=== PATIENT | male | born 1955 | race Caucasian/White ===

== ENCOUNTER 2020-06-06 13:18 | Emergency (ER) | payer BC ==
[2020-06-06 14:02] LABS: VBG BASE EXCESS -4.8 mmol/L (-2 - +2); VBG PCO2 30.7 mmHg (41-51); VBG PH 7.402 (7.31-7.41); VBG PO2 59.2 mmHg (25-47); VBG TOTAL CO2 19.6 mmol/L (24-29)
[2020-06-06] MEDS ORDERED: SODIUM CHLORIDE 0.9% 1,000 ML IV STA ×2 (14:02)
[2020-06-06 14:06] LABS: BILIRUBIN,URINE NEGATIVE (NEGATIVE); GLUCOSE, URINE (UA) >=1000 mg/dL (NEGATIVE); KETONES,URINE (UA) 15 mg/dL (NEGATIVE); LEUKOCYTE ESTERASE, URINE NEGATIVE (NEGATIVE); NITRITE,URINE NEGATIVE (NEGATIVE); OCCULT BLOOD,URINE NEGATIVE (NEGATIVE); PROTEIN,URINE NEGATIVE (NEGATIVE); UROBILINOGEN,URINE 2 E.U./dL (NORMAL)
[2020-06-06 14:07] LABS: CLARITY,URINE CLEAR (CLEAR)
--- NOTE | 2020-06-06 14:07 | ED Physician Documentation ---
History of Present Illness - Stated complaint Stated Complaint: RT RIB PX - Chief complaint Chief Complaint: General - History obtained from History obtained from: Patient - History of Present Illness Timing: How many days ago (9) Pain level max: 7 Pain level now: 5 - Additonal information Additional information: Patient is a 65-year-old male who presents to the emergency department left- sided chest wall pain after falling a week ago and landing on the bathtub. Worse with movement and better with rest. He states he is diabetic and his blood sugars been higher than normal as well. States it was over 400 today. He feels weak and shaky. No fevers. No cough. No vomiting. No abdominal pain. Has been taking ibuprofen without relief of the chest wall pain. Patient states he has been drinking heavily since his brother . States no alcohol for 2 days. Has never had seizures. No history of hallucinations. Review of Systems Constitutional: denies: Fever, Chills Respiratory: denies: Cough GI: denies: Nausea, Vomiting Skin: denies: Rash Musculoskeletal: denies: Neck pain, Back pain Neurologic: denies: Headache PD PAST MEDICAL HISTORY - Past Medical History Past Medical History: Yes Cardiovascular: Hypertension Endocrine/Autoimmune: Type 2 diabetes - Present Medications Home Medications: Ambulatory Orders Medication Instructions Recorded Confirmed Lidocaine Patch 5% [Lidoderm Patch] 1 patch TOP DAILY PRN #10 patch 06/06/20 Ondansetron Odt [Zofran] 4 mg TL Q6H PRN #10 tablet 06/06/20 Oxycodone HCl/Acetaminophen 1 - 2 each PO Q6H PRN #14 tablet 06/06/20 [Percocet 5-325 mg Tablet] - Allergies Allergies/Adverse Reactions: Allergies Allergy/AdvReac Type Severity Reaction Status Date / Time No Known Drug Allergies Allergy Verified 06/06/20 13:21 - Living Situation Living Situation: reports: With family Living Arrangement: reports: At home - Social History Does the pt have substance abuse?: No - Family History Family history: reports: Non contributory PD ED PE NORMAL - Vitals Vital signs reviewed: Yes - General General: Alert and oriented X 3, No acute distress, Well developed/nourished - HEENT HEENT: PERRL, Moist mucous membranes - Neck Neck: Supple, no meningeal sign - Cardiac Cardiac: RRR, Strong equal pulses - Respiratory Respiratory: No respiratory distress, Clear bilaterally, Other (TTP L anterior chest wall. no crepitus or ecchymosis.) - Abdomen Abdomen: Soft, Non tender, Non distended - Derm Derm: Warm and dry - Extremities Extremities: No edema, No calf tenderness / cord - Neuro Neuro: Alert and oriented X 3 - Psych Psych: Normal mood, Normal affect Results - Vitals Vitals: Vital Signs - 24 hr 06/06/20 06/06/20 06/06/20 13:22 14:00 14:01 Temperature 36.8 C Heart Rate 96 97 92 Respiratory 18 19 20 Rate Blood Pressure 166/63 H 143/73 H 145/70 H O2 Saturation 96 98 97 06/06/20 06/06/20 06/06/20 14:28 14:51 15:52 Temperature 37.2 C Heart Rate 85 85 82 Respiratory 23 18 19 Rate Blood Pressure 145/70 H 140/64 H 141/67 H O2 Saturation 98 100 06/06/20 06/06/20 06/06/20 15:55 17:23 18:00 Temperature Heart Rate 84 74 80 Respiratory 21 21 18 Rate Blood Pressure 169/78 H 144/58 H 145/80 H O2 Saturation 98 97 100 Oxygen O2 Source Room air - Labs Labs: Laboratory Tests 06/06/20 06/06/20 06/06/20 13:34 13:45 13:45 WBC 9.9 RBC 4.29 L Hgb 14.4 Hct 40.6 L MCV 94.6 H MCH 33.6 H MCHC 35.5 RDW 11.7 L Plt Count 139 MPV 10.5 Neut # (Auto) 8.5 H Lymph # (Auto) 0.7 L Ripley # (Auto) 0.6 Eos # (Auto) 0.0 Baso # (Auto) 0.0 Absolute Nucleated RBC 0.00 Nucleated RBC % 0.0 VBG pH VBG pCO2 VBG pO2 VBG HCO3 VBG Total CO2 VBG O2 Saturation VBG Base Excess Sodium 132 L Potassium 3.7 Chloride 94 L Carbon Dioxide 16 L Anion Gap 22.0 H BUN 19 Creatinine 1.1 Estimated GFR (MDRD) 68 L Glucose 332 H POC Whole Bld Glucose 346 H Estimat Average Glucose Hemoglobin A1c % Calcium 9.5 Total Bilirubin 1.6 H AST 109 H ALT 86 H Alkaline Phosphatase 54 Troponin I High Sens Total Protein 7.8 Albumin 4.5 Globulin 3.3 Albumin/Globulin Ratio 1.4 Lipase 64 H Urine Color Urine Clarity Urine pH Ur Specific [place] Urine Protein Urine Glucose (UA) Urine Ketones Urine Occult Blood Urine Nitrite Urine Bilirubin Urine Urobilinogen Ur Leukocyte Esterase Ur Microscopic Review Urine Culture Comments Serum Ketones SMALL H 06/06/20 06/06/20 06/06/20 13:45 13:45 13:45 WBC RBC Hgb Hct MCV MCH MCHC RDW Plt Count MPV Neut # (Auto) Lymph # (Auto) Ripley # (Auto) Eos # (Auto) Baso # (Auto) Absolute Nucleated RBC Nucleated RBC % VBG pH 7.402 VBG pCO2 30.7 L VBG pO2 59.2 H VBG HCO3 18.7 L VBG Total CO2 19.6 L VBG O2 Saturation 90.3 H VBG Base Excess -4.8 L Sodium Potassium Chloride Carbon Dioxide Anion Gap BUN Creatinine Estimated GFR (MDRD) Glucose POC Whole Bld Glucose Estimat Average Glucose 206 H Hemoglobin A1c % 8.8 H Calcium Total Bilirubin AST ALT Alkaline Phosphatase Troponin I High Sens 38.9 H* Total Protein Albumin Globulin Albumin/Globulin Ratio Lipase Urine Color Urine Clarity Urine pH Ur Specific [place] Urine Protein Urine Glucose (UA) Urine Ketones Urine Occult Blood Urine Nitrite Urine Bilirubin Urine Urobilinogen Ur Leukocyte Esterase Ur Microscopic Review Urine Culture Comments Serum Ketones 06/06/20 06/06/20 06/06/20 13:59 17:10 17:39 WBC RBC Hgb Hct MCV MCH MCHC RDW Plt Count MPV Neut # (Auto) Lymph # (Auto) [place] # (Auto) Eos # (Auto) Baso # (Auto) Absolute Nucleated RBC Nucleated RBC % VBG pH VBG pCO2 VBG pO2 VBG HCO3 VBG Total CO2 VBG O2 Saturation VBG Base Excess Sodium Potassium Chloride Carbon Dioxide Anion Gap BUN Creatinine Estimated GFR (MDRD) Glucose POC Whole Bld Glucose 214 H Estimat Average Glucose Hemoglobin A1c % Calcium Total Bilirubin AST ALT Alkaline Phosphatase Troponin I High Sens 44.5 H* Total Protein Albumin Globulin Albumin/Globulin Ratio Lipase Urine Color YELLOW Urine Clarity CLEAR Urine pH 6.0 Ur Specific [place] 1.015 Urine Protein NEGATIVE Urine Glucose (UA) >=1000 H Urine Ketones 15 H Urine Occult Blood NEGATIVE Urine Nitrite NEGATIVE Urine Bilirubin NEGATIVE Urine Urobilinogen 2 H Ur Leukocyte Esterase NEGATIVE Ur Microscopic Review NOT INDICATED Urine Culture Comments NOT INDICATED Serum Ketones - Rads (name of study) Rib x-ray Radiology: Prelim report reviewed, EMP read contemporaneously, See rad report Chest x-ray Radiology: Prelim report reviewed, EMP read contemporaneously, See rad report PD MEDICAL DECISION MAKING - ED course Complexity details: reviewed results, re-evaluated patient, considered differential, d/w patient ED course: 65-year-old male presents to the emergency department with left ninth and 10th rib fractures. These are about 1 week old. Feels better after IV fluids. Blood sugar decreased with insulin. Feels better after Ativan as well. Pain well controlled. We will prescribe pain medication for home for the rib fractures as well as Lidoderm patches. Patient counseled not to drink while taking narcotic pain medication. Patient ambulating well in the emergency dep artment. Patient counseled regarding signs and symptoms for which I believe and urgent re-evaluation would be necessary. Patient with good understanding of and agreement to plan and is comfortable going home at this time This document was made in part using voice recognition software. While efforts are made to proofread this document, sound alike and grammatical errors may occur. Patient does not want to go to alcohol rehab IMPRESSION: Left lateral ninth and 10th rib fractures are noted, better appreciated on rib series of 06/06/2020. Trace effusion. IMPRESSION: Mildly displaced left ninth and 10th lateral rib fractures with trace effusion. Departure - Departure Disposition: 01 Home, Self Care Clinical Impression: Hyperglycemia Alcohol withdrawal Qualifiers: Complication of substance-induced condition: uncomplicated Qualified Code(s): F10.230 - Alcohol dependence with withdrawal, uncomplicated Rib fracture Qualifiers: Encounter type: initial encounter Rib fracture type: multiple ribs Fracture type: closed Laterality: left Qualified Code(s): S22.42XA - Multiple fractures of ribs, left side, initial encounter for closed fracture Condition: Good Instructions: ED Withdrawal Alcohol, ED Fx Rib Follow-Up: your,doctor in 1 week [Other] Prescriptions: Lidocaine Patch 5% [Lidoderm Patch] 1 patch TOP DAILY PRN #10 patch PRN Reason: pain Oxycodone HCl/Acetaminophen [Percocet 5-325 mg Tablet] 1 - 2 each PO Q6H PRN #14 tablet PRN Reason: pain Ondansetron Odt [Zofran] 4 mg TL Q6H PRN #10 tablet PRN Reason: Nausea / Vomiting Comments: Return if you worsen. Follow up with your doctor for further care. Do not drink alcohol or drive while on narcotic pain medicine. Note that many narcotic pain relievers also contain tylenol/acetaminophen. Please ensure that your total dose of acetaminophen from all sources does not exceed 3 grams (3000mg) per day. You may constipated on this medication, take a stool softener such as "Colace" twice a day while you are on it. Also recommend a xgeo-lnu-cccohvy laxative such as senna or MiraLAX any day that you do not have a bowel movement. If you received narcotic pain medication in the emergency department, do not drive or operate machinery for the next 24 hours. Discharge Date/Time: 06/06/20 18:00
[2020-06-06 14:12] LABS: BASOPHILS % (AUTO) 0.2 %; EOSINOPHILS % (AUTO) 0.2 %; HGB - HEMOGLOBIN 14.4 g/dL (14.0-18.0); LYMPHOCYTES # (AUTO) 0.7 10^3/uL (1.5-3.5); LYMPHOCYTES % (AUTO) 6.8 %; MEAN CORPUSCULAR HEMOGLOBIN 33.6 pg (27.0-31.0); MEAN CORPUSCULAR HGB CONC 35.5 g/dL (32.0-36.0); MEAN CORPUSCULAR VOLUME 94.6 fL (80.0-94.0); MEAN PLATELET VOLUME 10.5 fL (7.4-11.4); MONOCYTES # (AUTO) 0.6 10^3/uL (0.0-1.0); NEUTROPHILS # (AUTO) 8.5 10^3/uL (1.5-6.6); PLT - PLATELET COUNT 139 10^3/uL (130-450); RED BLOOD COUNT 4.29 10^6/uL (4.70-6.10); RED CELL DISTRIBUTION WIDTH 11.7 % (12.0-15.0); WHITE BLOOD COUNT 9.9 x10^3/uL (4.8-10.8)
[2020-06-06 14:16] LABS: ALBUMIN 4.5 g/dL (3.2-5.5); ALBUMIN/GLOBULIN RATIO 1.4 (1.0-2.2); ALKALINE PHOSPHATASE 54 IU/L (42-121); ALT ALANINE AMINOTRANSFERASE 86 IU/L (10-60); AST ASPARTATE AMINOTRANSFERASE 109 IU/L (10-42); BILIRUBIN,TOTAL 1.6 mg/dL (0.2-1.0); BUN - BLOOD UREA NITROGEN 19 mg/dL (6-20); CALCIUM 9.5 mg/dL (8.5-10.3); CARBON DIOXIDE - CO2 16 mmol/L (21-32); CHLORIDE 94 mmol/L (101-111); CREATININE 1.1 mg/dL (0.6-1.2); GLUCOSE 332 mg/dL (70-100); LIPASE 64 U/L (22-51); TOTAL PROTEIN 7.8 g/dL (6.7-8.2)
[2020-06-06 14:22] LABS: KETONES, SERUM (ACETEST) SMALL (NEGATIVE)
[2020-06-06] MEDS ORDERED: MORPHINE 2 MG/ML CARPUJECT IVP STA (14:40)
[2020-06-06] MEDS ORDERED: LIDOCAINE PATCH 5% TOP STA (14:41)
--- NOTE | 2020-06-06 14:48 | XRAY Report ---
PROCEDURE: Chest 1 View X-Ray INDICATIONS: Chest pain TECHNIQUE: One view of the chest was acquired. COMPARISON: X-ray ribs 06/06/2020 FINDINGS: Surgical changes and devices: None. Lungs and pleura: There is trace blunting of the left costophrenic angle. No pneumothorax. Mediastinum: Mediastinal contours appear normal. Heart size is enlarged. Bones and chest wall: No suspicious bony lesions. Overlying soft tissues appear unremarkable. Left lateral ninth and 10th rib fractures are noted. IMPRESSION: Left lateral ninth and 10th rib fractures are noted, better appreciated on rib series of 06/06/2020. T race effusion. Reviewed by: Delaney Burns MD on 06/06/2020 2:47 PM PST Approved by: Delaney Burns MD on 06/06/2020 2:47 PM PST Station ID: [id number]
--- NOTE | 2020-06-06 14:49 | XRAY Report ---
PROCEDURE: Ribs 2 View LT INDICATIONS: fall, L rib pain TECHNIQUE: 3 views of the left ribs were acquired. COMPARISON: Chest x-ray 06/06/2020 FINDINGS: Surgical changes and devices: None. Bones and chest wall: Left lateral mildly displaced ninth and 10th lateral rib fractures. No suspicio us bony lesions. Overlying soft tissues appear unremarkable. Lungs and pleura: Minimal left costophrenic angle blunting. No pneumothorax. IMPRESSION: Mildly displaced left ninth and 10th lateral rib fractures with trace effusion. Reviewed by: Delaney Burns MD on 06/06/2020 2:48 PM PST Approved by: Delaney Burns MD on 06/06/2020 2:48 PM PST Station ID: [id number]
[2020-06-06] MEDS ORDERED: INSULIN REGULAR HUMAN 100 UNIT/1 ML 10 ML MDV SUBQ STA (16:00)
[2020-06-06] MEDS ORDERED: oxyCODONE 5 MG TABLET PO STA ×2 (16:00→16:05)
[2020-06-06] MEDS ORDERED: LORazepam 0.5 MG TABLET PO STA (16:05)
[2020-06-06 18:01] VITALS: BP 145/80
[2020-06-06 18:32] LABS: HEMOGLOBIN A1c% 8.8 % (4.27-6.07)
== END 2020-06-06 18:00 | disposition home or self-care (01) ==
LOC: ED 13:18
DX: S22.42XA Multiple fractures of ribs, left side, initial encounter for closed fracture (principal); W01.198A Fall on same level from slipping, tripping and stumbling with subsequent striking against other object, initial encounter; E11.65 Type 2 diabetes mellitus with hyperglycemia; F10.230 Alcohol dependence with withdrawal, uncomplicated; I10 Essential (primary) hypertension
CPT/HCPCS: 36415; 71045; 71100; 80053; 81003; 82009; 82803; 83036; 83690; 84484; 85025; 93005; 99284; A9270; J1815; 81001; 87086